=== PATIENT | female | born 1945 | race American Indian/Alaskan Native ===

== ENCOUNTER 2018-03-29 11:05 | Emergency (ER) | payer MEDICARE ==
[2018-03-29] MEDS ORDERED: ZOFRAN ODT PO ONE (12:01)
[2018-03-29] MEDS ORDERED: TORADOL IM ONE (12:01)
--- NOTE | 2018-03-29 12:03 | Emergency Department Report ---
Blank Doc - Documentation Documentation: Patient is a 72-year-old Female who is presenting with right upper quadrant pain with radiation to the right scapula for the last 4 days. Patient says was much worse this morning she did have some associated nausea and dry heaves. Patient denies any fever. Patient states has been no dysuria or diarrhea cough cold congestion. Patient briefly focused physical exam does have some right upper quadrant tenderness with no rebound or guarding. Patient will have ultrasound done of the right upper quadrant laboratory studies have been ordered. Patient will be reassessed.
[2018-03-29 12:58] LABS: Basophils % (Auto) 0.2 % (0.0-1.8); Eosinophils % (Auto) 0.5 % (0.0-4.3); Hematocrit 37.3 % (30.3-42.9); Hemoglobin 12.6 gm/dl (10.1-14.3); Lymphocytes # (Auto) 1.7 K/mm3 (1.2-5.4); Lymphocytes % (Auto) 33.2 % (13.4-35.0); Mean Corpuscular HGB Conc 34 % (30-34); Mean Corpuscular Hemoglobin 32 pg (28-32); Mean Corpuscular Volume 95 fl (79-97); Monocytes # (Auto) 0.4 K/mm3 (0.0-0.8); Monocytes % (Auto) 7.9 % (0.0-7.3); Platelet Count 115 K/mm3 (140-440); Red Blood Count 3.94 M/mm3 (3.65-5.03); Red Cell Distribution Width 14.4 % (13.2-15.2)
[2018-03-29 13:18] LABS: Alanine Aminotransferase 12 units/L (7-56); Albumin 4.1 g/dL (3.9-5); BUN/Creatinine Ratio 24; Blood Urea Nitrogen 19 mg/dL (7-17); Calcium 9.1 mg/dL (8.4-10.2); Hemolysis Index 18; Lipase 23 units/L (13-60)
--- NOTE | 2018-03-29 13:20 | Ultrasound Report ---
FINAL REPORT EXAM: US ABDOMEN COMPLETE HISTORY: RUQ pain COMPARISON: None. TECHNIQUE: Multiple transverse and longitudinal sonographic grayscale images of the abdomen were obtained, supplemented with Doppler imaging. FINDINGS: Pancreas:Visualized portions normal. Liver appearance: Normal echogenicity. No focal internal lesion. Normal hepatopetal flow of the main portal vein.No biliary ductal dilatation. CBD: 4.3mm. Gallbladder: Fluid filled and without stones. No pericholecystic fluid or gallbladder wall thickening. Sonographic Merlos's sign is negative. Right kidney length: 9.3 cm. Right kidney appearance: Normal cortical thickness. No hydronephrosis. No echogenic focus or mass. Left kidney length: 11.9 cm. Left kidney appearance: Normal cortical thickness. No hydronephrosis. No echogenic focus or mass. Spleen: 7.1 cm in length. Normal echogenicity. No focal internal lesion. Aorta: Normal. IVC: Normal. Other findings: No free fluid. IMPRESSION: Normal abdominal ultrasound.
[2018-03-29 13:56] LABS: Bilirubin,Urine NEG (Negative); Blood,Urine NEG (Negative); Color,Urine Amber (Yellow); Mucus,Urine FEW /HPF; Protein,Urine <15 mg/dL mg/dL (Negative); Urobilinogen,Urine < 2.0 mg/dL (<2.0); WBC,Urine < 1.0 /HPF (0.0-6.0)
[2018-03-29] MEDS ORDERED: NACL 0.9% 1000 ML 1,000 ML IV ONE (13:59)
--- NOTE | 2018-03-29 15:00 | Emergency Department Report ---
ED Abdominal Pain HPI - General Chief Complaint: Abdominal Pain Stated Complaint: RT SIDE BACK PAIN Time Seen by Provider: 03/29/18 11:54 Source: patient Mode of arrival: Ambulatory Limitations: No Limitations - History of Present Illness Initial Comments: This is a 72-year-old female nontoxic, well nourished in appearance, no acute signs of distress presents to the ED with c/o of nausea and abdominal pain4 days. Patient denies any vomiting. Patient describes abdominal pain as cramping and aching with level of 3/10 mostly in the RUQ. Patient denies chest pain, short of breath, fever, chills, headache, stiff neck, numbness or tingling. Patient stated pain radiates to right flank area. Patient denies any diarrhea or constipation. Patient denies any vaginal bleeding or discharge. Patient denies any recent travels. Patient stated allergies to codine and hydrocodone. MD Complaint: abdominal pain -: days(s) (4) Location: RUQ Radiation: R flank Migration to: no migration Severity: mild Severity scale (0 -10): 3 Quality: cramping, aching Consistency: constant Improves With: nothing Worsens With: nothing Associated Symptoms: nausea. denies: vomiting, diarrhea, fever, chills, constipation, dysuria, hematemesis, hematochezia, melena, hematuria, anorexia, syncope - Related Data Home Medications Medication Instructions Recorded Confirmed Last Taken Cetirizine HCl [ZyrTEC] 10 mg PO DAILY 11/16/15 11/16/15 11/16/15 07:00 10mg Gabapentin [Gralise] 300 mg PO DAILY 11/16/15 11/16/15 11/16/15 07:00 300mg Lisinopril [Zestril TAB] 40 mg PO QDAY 11/16/15 11/16/15 11/16/15 07:00 40mg Mv,Calcium,Min/Iron/Folic/Vitk 1 tab PO DAILY 11/16/15 11/16/15 11/16/15 07:00 [Multi For Her Tablet] 1 tab Nebivolol HCl [Bystolic] 10 mg PO QDAY 11/16/15 11/16/15 11/16/15 07:00 10mg Omeprazole [PriLOSEC] 40 mg PO DAILY 11/16/15 11/16/15 11/16/15 07:00 40mg amLODIPine [Norvasc] 5 mg PO BID 11/16/15 11/16/15 11/16/15 07:00 5mg valACYclovir [Valtrex] 500 mg PO DAILY 11/16/15 11/16/15 11/16/15 07:00 500mg Previous Rx's Medication Instructions Recorded Last Taken Type Ibuprofen [Motrin] 600 mg PO Q8H PRN #30 tablet 03/29/18 Unknown Rx Ondansetron [Zofran Odt] 4 mg PO Q8HR PRN #20 tab.rapdis 03/29/18 Unknown Rx Allergies Allergy/AdvReac Type Severity Reaction Status Date / Time codeine Allergy Itching Verified 11/16/15 08:56 hydrocodone [From Vicodin] Allergy Unknown Verified 03/29/18 11:24 ED Review of Systems ROS: Stated complaint: RT SIDE BACK PAIN Other details as noted in HPI Constitutional: denies: chills, fever Eyes: denies: eye pain, eye discharge, vision change ENT: denies: ear pain, throat pain Respiratory: denies: cough, shortness of breath, wheezing Cardiovascular: denies: chest pain, palpitations Endocrine: no symptoms reported Gastrointestinal: abdominal pain, nausea. denies: vomiting, diarrhea, constipation Genitourinary: denies: urgency, dysuria, discharge Musculoskeletal: denies: back pain, joint swelling, arthralgia Skin: denies: rash, lesions Neurological: denies: headache, weakness, paresthesias Psychiatric: denies: anxiety, depression Hematological/Lymphatic: denies: easy bleeding, easy bruising ED Past Medical Hx - Past Medical History Hx Hypertension: Yes Hx GERD: Yes Hx Arthritis: Yes Hx Kidney Stones: Yes Additional medical history: Lupus,herpes simplex,scleroderma,hiatal hernia - Surgical History Past Surgical History?: No - Social History Smoking Status: Never Smoker Substance Use Type: None - Medications Home Medications: Home Medications Medication Instructions Recorded Confirmed Last Taken Type Cetirizine HCl [ZyrTEC] 10 mg PO DAILY 11/16/15 11/16/15 11/16/15 07:00 History 10mg Gabapentin [Gralise] 300 mg PO DAILY 11/16/15 11/16/15 11/16/15 07:00 History 300mg Lisinopril [Zestril TAB] 40 mg PO QDAY 11/16/15 11/16/15 11/16/15 07:00 History 40mg Mv,Calcium,Min/Iron/Folic/Vitk 1 tab PO DAILY 11/16/15 11/16/15 11/16/15 07:00 History [Multi For Her Tablet] 1 tab Nebivolol HCl [Bystolic] 10 mg PO QDAY 11/16/15 11/16/15 11/16/15 07:00 History 10mg Omeprazole [PriLOSEC] 40 mg PO DAILY 11/16/15 11/16/15 11/16/15 07:00 History 40mg amLODIPine [Norvasc] 5 mg PO BID 11/16/15 11/16/15 11/16/15 07:00 History 5mg valACYclovir [Valtrex] 500 mg PO DAILY 11/16/15 11/16/15 11/16/15 07:00 History 500mg Ibuprofen [Motrin] 600 mg PO Q8H PRN #30 tablet 03/29/18 Unknown Rx Ondansetron [Zofran Odt] 4 mg PO Q8HR PRN #20 tab.rapdis 03/29/18 Unknown Rx ED Physical Exam - General Limitations: No Limitations General appearance: alert, in no apparent distress - Head Head exam: Present: atraumatic, normocephalic - Eye Eye exam: Present: normal appearance Pupils: Present: normal accommodation - ENT ENT exam: Present: normal exam, mucous membranes moist - Neck Neck exam: Present: normal inspection, full ROM. Absent: tenderness, meningismus, lymphadenopathy - Respiratory Respiratory exam: Present: normal lung sounds bilaterally. Absent: respiratory distress, wheezes, rales, rhonchi, stridor, chest wall tenderness, accessory muscle use, decreased breath sounds, prolonged expiratory - Cardiovascular Cardiovascular Exam: Present: regular rate, normal rhythm, normal heart sounds. Absent: irregular rhythm, systolic murmur, diastolic murmur, rubs, gallop - GI/Abdominal GI/Abdominal exam: Present: soft, tenderness (RUQ), normal bowel sounds. Absent : distended, guarding, rebound, rigid, diminished bowel sounds - Expanded GI/Abdominal Exam Expanded GI/Abdominal exam: Absent: psoas sign, obturator sign, heel tap sign, Merlos's sign, Rovsing's sign, tenderness at Mcburney's Point, ascites - Rectal Rectal exam: Present: deferred - Extremities Exam Extremities exam: Present: normal inspection, full ROM, normal capillary refill. Absent: tenderness - Back Exam Back exam: Present: normal inspection, full ROM. Absent: tenderness, CVA tenderness (R), CVA tenderness (L), muscle spasm, paraspinal tenderness, vertebral tenderness, rash noted - Neurological Exam Neurological exam: Present: alert, oriented X3, normal gait - Psychiatric Psychiatric exam: Present: normal affect, normal mood - Skin Skin exam: Present: warm, dry, intact, normal color. Absent: rash ED Course Vital Signs 03/29/18 03/29/18 11:19 13:23 Temperature 98.1 F Pulse Rate 92 H Respiratory 20 16 Rate Blood Pressure 152/98 O2 Sat by Pulse 99 Oximetry - Reevaluation(s) Reevaluation #1: 03/29/18 15:10 Patient is speaking in full sentences with no signs of distress noted. ED Medical Decision Making - Lab Data Result diagrams: 03/29/18 12:37 03/29/18 12:37 - Medical Decision Making This is a 72-year-old female that presents with abdominal pain. Patient is stable and was examined by me and Dr. Nieves. There is slight abdominal tenderness. Negative signs of symptoms of appendicitis. Labs obtained. UA obtained. CT of abdomen obtained and dictated by the radiologist with possible peptic ulcer disease vs gastritits. Patient is notified of the report with no questions noted by the patient. Vital signs are stable prior to discharge. PAtient received Toradol and 1L normal saline in the ED which patient stated symptoms has resovled and subsided. A by mouth challenge has been obtained and patient tolerated well with no nausea vomiting. Patient was notified of strict precatuions of appendictis symptoms and to return to the ED if symptoms occurs as soon as possible. Patient was also instructed to Follow-up with a primary care doctor in 3-5 days or if symptoms worsen and continue return to emergency room as soon as possible. At time of discharge, the patient does not seem toxic or ill in appearance. No acute signs of distress noted. Patient agrees to discharge treatment plan of care. No further questions noted by the patient. Critical care attestation.: If time is entered above; I have spent that time in minutes in the direct care of this critically ill patient, excluding procedure time. ED Disposition Clinical Impression: Abdominal pain Qualifiers: Abdominal location: right upper quadrant Qualified Code(s): R10.11 - Right upper quadrant pain Disposition: - TO HOME OR SELFCARE Is pt being admited?: No Does the pt Need Aspirin: No Condition: Stable Instructions: Abdominal Pain (ED) Additional Instructions: Follow-up with a primary care/gastroentrologist doctor in 3-5 days or if symptoms worsen and continue return to emergency room as soon as possible. Prescriptions: Ibuprofen [Motrin] 600 mg PO Q8H PRN #30 tablet PRN Reason: Pain Ondansetron [Zofran Odt] 4 mg PO Q8HR PRN #20 tab.rapdis PRN Reason: Nausea Referrals: AARON IVERSON DO [Primary Care Provider] - 3-5 Days PRIMARY CAREMD [Referring] - 3-5 Days EASTON BRADEN MD [Staff Physician] - 3-5 Days [facility] [Provider Group] - 3-5 Days
--- NOTE | 2018-03-29 15:08 | Cat Scan Report ---
CT ABDOMEN PELVIS WITH CONTRAST: HISTORY: abdominal pain. COMPARISON: none. TECHNIQUE: Helical CT in 1.25mm intervals following IV contrast. Sagittal and coronal reconstructions. FINDINGS: Lung bases: Normal. Liver: Normal. Biliary system: Normal. Pancreas: Normal. Spleen: Normal. Kidneys/ureters/bladder: Normal. Adrenal glands: Normal. Aorta: Normal. Intestines: There appears to be mild gastric mucosal thickening and mild mucosal thickening throughout the duodenum. Gastritis or peptic ulcer disease could be considered. No large mass or ulceration is identified on CT. The remaining bowel loops are unremarkable given no oral contrast was administered. Appendix: Not confidently identified, correlate with surgical history. Pelvic viscera: Normal. Ascites: None. Adenopathy: None. Musculoskeletal: Mild thoracolumbar spondylosis. IMPRESSION: Mild mucosal thickening throughout the stomach and duodenum could be related to peptic ulcer disease or gastritis. Please correlate with the patient's clinical presentation. Otherwise, unremarkable exam of the abdomen and pelvis.
[2018-03-29 15:26] VITALS: BP 142/87
== END 2018-03-29 15:26 | disposition home or self-care (01) ==
LOC: ED 11:05
DX: R10.11 Right upper quadrant pain (principal); I10 Essential (primary) hypertension; M19.90 Unspecified osteoarthritis, unspecified site; K21.9 Gastro-esophageal reflux disease without esophagitis; M32.9 Systemic lupus erythematosus, unspecified; Z87.442 Personal history of urinary calculi; Z88.5 Allergy status to narcotic agent
CPT/HCPCS: 36415; 74177; 76700; 80053; 81001; 83690; 85025; 96372; 99284; J1885; J7030; Q9967; Q0162